=== PATIENT | female | born 1985 | race Caucasian/White ===

== ENCOUNTER 2017-12-12 03:20 | Emergency (ER) | payer BC ==
[2017-12-12] MEDS ORDERED: Ciprofloxacin 500 MG Tab PO ONE (03:21)
[2017-12-12] MEDS ORDERED: Ketorolac 10 MG Tab PO ONE (03:21)
[2017-12-12] MEDS ORDERED: Sodium Chloride 0.9% 1,000 ML IV ONE (03:36)
[2017-12-12] MEDS ORDERED: Ketorolac 30 MG/ML SDV IVPUSH ONE (03:37)
--- NOTE | 2017-12-12 03:47 | EDM.PDOC ---
ED HPI GENERAL MEDICAL PROBLEM - General Chief Complaint: General Stated Complaint: right flank pain Time Seen by Provider: 12/12/17 03:40 Source of Information: Reports: Patient History Limitations: Reports: No Limitations - History of Present Illness INITIAL COMMENTS - FREE TEXT/NARRATIVE: Erin is a 32 year old female who presents to the ED with c/o right flank pain. She reports that earlier this week she had some dysuria and urinary frequency. She reports she pushed fluids and drank cranberry juice and her urinary symptoms seemed to improve. She reports that starting this morning her right flank started hurting. She says that initially it was more of a dull ache and throughout the day she was able to manage it with ibuprofen. She now reports that throughout the night the pain has intensified and is no longer tolerable. She last had ibuprofen at 8 pm. She reports she does not have any urinary symptoms currently. Denies any history of kidney stones. Denies fever, but does have low grade in ER. She has had the chills throughout the evening. She reports she has had some intermittent nausea. Denies vomiting. Onset: Today Onset Date: 12/12/17 Onset Time: 08:00 Duration: Getting Worse Location: Reports: Back (right flank) Quality: Reports: Sharp, Stabbing Severity: Severe Improves with: Reports: Medication Associated Symptoms: Reports: Fever/Chills, Nausea/Vomiting, Weakness. 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 Right Flank Pain Score (Numeric/FACES): 8 - Related Data Allergies Allergy/AdvReac Type Severity Reaction Status Date / Time Penicillins Allergy Hives Verified 12/12/17 03:27 Home Meds: Home Meds Ciprofloxacin [IJD: Ciprofloxacin HCl] 500 mg PO Q12HR #11 tab 12/12/17 [Rx] Ketorolac Tromethamine 10 mg PO Q6H PRN #20 tablet 12/12/17 [Rx] Past Medical History - Past Health History Medical/Surgical History: Denies Medical/Surgical History Social & Family History - Family History Family Medical History: Noncontributory - Tobacco Use Smoking Status *Q: Never Smoker ED ROS GENERAL - Review of Systems Review Of Systems: ROS reveals no pertinent complaints other than HPI. Constitutional: Reports: Fever, Chills, Weakness, Fatigue Respiratory: Reports: No Symptoms. Denies: Shortness of Breath Cardiovascular: Reports: No Symptoms. Denies: Chest Pain Endocrine: Reports: No Symptoms GI/Abdominal: Reports: Decreased Appetite, Nausea. Denies: Abdominal Pain, Anorexia, Constipation, Diarrhea, Vomiting : Reports: Flank Pain (right), Hematuria (has her period). Denies: Dysuria, Frequency, Urgency Neurological: Reports: No Symptoms Psychiatric: Reports: No Symptoms ED EXAM, GENERAL - Physical Exam Exam: See Below Exam Limited By: No Limitations General Appearance: Alert, WD/WN, Moderate Distress Neck: Normal Inspection, Supple, Non-Tender, Full Range of Motion Respiratory/Chest: No Respiratory Distress, Lungs Clear, Normal Breath Sounds, No Accessory Muscle Use, Chest Non-Tender Cardiovascular: Normal Peripheral Pulses, Regular Rate, Rhythm, No Edema, No Gallop, No JVD, No Murmur, No Rub GI/Abdominal: Normal Bowel Sounds, Soft, No Organomegaly, No Distention, No Abnormal Bruit, No Mass, Tender (lower). No: Guarding, Rigid, Rebound Back Exam: CVA Tenderness (R) Neurological: Alert, Oriented, CN II-XII Intact, Normal Cognition, Normal Gait, Normal Reflexes, No Motor/Sensory Deficits Skin Exam: Warm, Dry, Intact, Normal Color, No Rash Course - Vital Signs Last Recorded V/S: Last Vital Signs Temp 99.5 F 12/12/17 03:28 Pulse 100 12/12/17 03:28 Resp 18 12/12/17 03:28 BP 125/70 12/12/17 03:28 Pulse Ox 97 12/12/17 03:28 - Orders/Labs/Meds Orders: Active Orders 24 hr Category Date Time Status Abdomen Pelvis wo Cont [CT] Stat Exams 12/12/17 04:01 Taken CULTURE URINE [RM] Stat Lab 12/12/17 03:30 Received Labs: Laboratory Tests 12/12/17 12/12/17 12/12/17 Range/Units 03:30 03:43 03:43 WBC 9.5 (5.0-10.0) 10^3/uL RBC 4.48 (4.00-5.50) 10^6/uL Hgb 11.8 L (12.0-16.0) g/dL Hct 37.7 (37.0-47.0) % MCV 84.2 (82.0-94.0) fL MCH 26.3 L (27.0-32.0) pg MCHC 31.3 L (33.0-38.0) g/dL RDW Coeff of Katherine 15.8 H (11.0-15.0) % Plt Count 238 (150-400) 10^3/uL Neut % (Auto) 71.0 (35-85) % Lymph % (Auto) 15.5 (10-55) % [place] % (Auto) 12.6 (0-16) % Eos % (Auto) 0.8 (0-5) % Baso % (Auto) 0.1 (0-3) % Neut # (Auto) 6.71 (1.80-7.00) 10^3/uL Lymph # (Auto) 1.47 (1.00-4.80) 10^3/uL [place] # (Auto) 1.19 H (0.00-0.80) 10^3/uL Eos # (Auto) 0.08 (0.00-0.45) 10^3/uL Baso # (Auto) 0.01 10^3/uL Sodium 139 (136-145) mEq/L Potassium 3.5 (3.5-5.0) mEq/L Chloride 102 (98-106) mEq/L Carbon Dioxide 25 (21-32) mmol/L BUN 10 (7-18) mg/dL Creatinine 0.8 (0.6-1.0) mg/dL Est Cr Clr Drug Dosing 88.79 mL/min Estimated GFR (MDRD) > 60 (>=60) mL/min Glucose 94 (75-99) mg/dL Calcium 8.5 (8.4-10.1) mg/dL Total Bilirubin 0.6 (0.0-1.0) mg/dL AST 21 (15-37) U/L ALT 22 (12-78) U/L Alkaline Phosphatase 43 L (46-116) U/L C-Reactive Protein 6.9 H (0.2-0.8) mg/dL Total Protein 6.8 (6.4-8.2) g/dL Albumin 3.4 (3.4-5.0) g/dL Amylase 42 (25-115) U/L Urine Color Yellow (YELLOW) Urine Appearance Slightly cloudy (CLEAR) Urine pH 6.5 (4.5-8.0) Ur Specific [place] 1.020 (1.003-1.020) Urine Protein 30 H (NEGATIVE) mg/dL Urine Glucose (UA) Negative (NEGATIVE) mg/dL Urine Ketones 40 H (NEGATIVE) mg/dL Urine Occult Blood Trace-intact H (NEGATIVE) Urine Nitrite Negative (NEGATIVE) Urine Bilirubin Negative (NEGATIVE) Urine Urobilinogen 0.2 (0.2-1.0) EU/dL Ur Leukocyte Esterase Small H (NEGATIVE) Urine RBC 0-5 (0-5) /HPF Urine WBC 20-30 H (0-5) /HPF Urine WBC Clumps Occasional H (NOT SEEN) /HPF Ur Squamous Epith Cells Occasional H (NOT SEEN) /HPF Urine Bacteria Few H (NOT SEEN) /HPF Meds: Medications Discontinued Medications Generic Name Dose Route Start Last Admin Trade Name Freq PRN Reason Stop Dose Admin Ciprofloxacin 500 mg 12/12/17 04:30 12/12/17 05:23 Ciprofloxacin Hcl PO 500 mg STAT GABRIELA Administration Ciprofloxacin 1 packet 12/12/17 04:30 12/12/17 05:47 Take Home: Ciprofloxacin 500 Mg, 2 Tab Pack PO 12/12/17 04:31 Not Given ONETIME ONE Sodium Chloride 1,000 mls @ 999 mls/hr 12/12/17 03:36 12/12/17 04:05 Normal Saline IV 12/12/17 04:36 999 mls/hr .BOLUS ONE Administration Ketorolac Tromethamine 30 mg 12/12/17 03:37 12/12/17 04:04 Toradol IVPUSH 12/12/17 03:38 30 mg ONETIME ONE Administration Ketorolac Tromethamine 2 packet 12/12/17 04:44 12/12/17 05:47 Take Home: Ketorolac 10 Mg, 4 Tab Pack PO 12/12/17 04:45 Not Given ONETIME ONE - Radiology Interpretation Free Text/Narrative:: 2 SMALL RIGHT KIDNEY STONES. NONOBSTRUCTING. NO HYDRONEPHROSIS. NO OTHER ACUTE FINDINGS. CT Results Date: 12/12/17 CT Results Time: 04:47 - Re-Assessments/Exams Free Text/Narrative Re-Assessment/Exam: 12/12/17 04:06 Discussed labs with patient. Will proceed with renal colic study CT of abdomen/ pelvis. 12/12/17 04:[address] results with patient. Patient reports pain has improved. Departure - Departure Time of Disposition: 04:47 Disposition: Home, Self-Care 01 Condition: Good Clinical Impression: Kidney stone on right side, Complicated UTI (urinary tract infection) - Discharge Information Prescriptions: Ciprofloxacin [IJD: Ciprofloxacin HCl] 500 mg PO Q12HR #11 tab Ketorolac Tromethamine 10 mg PO Q6H PRN #20 tablet PRN Reason: Pain Instructions: Renal Colic, [id number], Kidney Stones, [id number], Urinary Tract Infection, Adult, Flank Pain Referrals: Provider,Unknown [Primary Care Provider] - Forms: ED Department Discharge Additional Instructions: Cipro twice daily x 7 days. Toradol as needed for flank pain Push fluids Follow up in clinic next week for recheck - My Orders Last 24 Hours: My Active Orders 12/12/17 03:30 CULTURE URINE [RM] Stat 12/12/17 04:01 Abdomen Pelvis wo Cont [CT] Stat - Assessment/Plan Last 24 Hours: My Active Orders 12/12/17 03:30 CULTURE URINE [RM] Stat 12/12/17 04:01 Abdomen Pelvis wo Cont [CT] Stat
[2017-12-12 04:01] LABS: CHLORIDE,CL 102 mEq/L (98-106); SODIUM,NA 139 mEq/L (136-145)
[2017-12-12] MEDS ORDERED: Ciprofloxacin 500 MG Tab PO SCH (04:30)
[2017-12-12] MEDS ORDERED: Take Home: Ciprofloxacin 500 MG Tab, 2 Tab Pack PO ONE (04:30)
[2017-12-12] MEDS ORDERED: Take Home: Ketorolac 10 MG Tab, 4 Tab Pack PO ONE (04:44)
== END 2017-12-12 05:25 | disposition home or self-care (01) ==
LOC: MERGE 03:20 → CC.ED 03:20
DX: N20.0 Calculus of kidney (principal); N39.0 Urinary tract infection, site not specified; Z88.0 Allergy status to penicillin
CPT/HCPCS: 36415; 74176; 80053; 81001; 82150; 85025; 86140; 87086; 87088; 87186; 96361; 96374; 99284; A9270; J1885; J7030

== ENCOUNTER 2021-02-25 22:57 | Emergency (ER) | payer BC ==
[2021-02-25] MEDS ORDERED: cefTRIAXone 1 GM Vial IM ONE (23:20)
[2021-02-25] MEDS ORDERED: Take Home: Phenazopyridine 95 MG Tab, 4 Tab Pack ONE (23:20)
--- NOTE | 2021-02-25 23:26 | EDM.PDOC ---
ED HPI GENERAL MEDICAL PROBLEM - General Chief Complaint: General Stated Complaint: UTI Time Seen by Provider: 02/25/21 23:10 Source of Information: Reports: Patient History Limitations: Reports: No Limitations - History of Present Illness INITIAL COMMENTS - FREE TEXT/NARRATIVE: Erin is a 35 year old female who presents to ER with burning with urination. States "hit suddenly this afternoon". Has had to void 2-3 times per hour. This evening has now noted blood in her urine. Has a fever. Bilateral lower quadrant abdominal pain and low back pain. No nausea or vomiting. States in past when gets these infections, always hit fast and hard. She denies constipation or diarrhea. Onset: Today, Sudden Duration: Hour(s):, Getting Worse Location: Reports: Abdomen, Back Quality: Reports: Ache Severity: Moderate Associated Symptoms: Reports: Fever/Chills. Denies: Confusion, Chest Pain, Cough, Loss of Appetite, Nausea/Vomiting, Shortness of Breath, Weakness Lower Abdomen Pain Score (Numeric/FACES): 7 - Related Data Allergies Allergy/AdvReac Type Severity Reaction Status Date / Time Penicillins Allergy Hives Verified 12/12/17 03:27 Home Meds: Home Meds Phenazopyridine HCl [Pyridium] 100 mg PO TID PRN #10 tablet 02/25/21 [Rx] Sulfamethoxazole/Trimethoprim [Bactrim Ds Tablet] 1 each PO BID #20 tablet 02/25/21 [Rx] Past Medical History - Past Health History Medical/Surgical History: Denies Medical/Surgical History Social & Family History - Family History Family Medical History: No Pertinent Family History - Tobacco Use Tobacco Use Status *Q: Never Tobacco User Second Hand Smoke Exposure: No - Caffeine Use Caffeine Use: Reports: Coffee - Recreational Drug Use Recreational Drug Use: No ED ROS GENERAL - Review of Systems Review Of Systems: See Below Constitutional: Reports: Fever, Chills, Malaise. Denies: Fatigue, Decreased Appetite HEENT: Reports: No Symptoms Respiratory: Denies: Shortness of Breath Cardiovascular: Denies: Chest Pain, Edema, Lightheadedness Endocrine: Denies: Fatigue GI/Abdominal: Denies: Abdominal Pain, Nausea, Vomiting : Reports: Dysuria, Flank Pain, Frequency, Hematuria, Urgency Musculoskeletal: Reports: Back Pain Skin: Reports: No Symptoms Neurological: Reports: No Symptoms ED EXAM, GENERAL - Physical Exam Exam: See Below Exam Limited By: No Limitations General Appearance: Alert, WD/WN, No Apparent Distress Ears: Normal External Exam, Normal TMs Nose: Normal Inspection, Normal Mucosa, No Blood Throat/Mouth: Normal Inspection, Normal Oropharynx Head: Normocephalic Neck: Normal Inspection, Supple, Non-Tender Respiratory/Chest: No Respiratory Distress, Lungs Clear, Normal Breath Sounds Cardiovascular: Regular Rate, Rhythm GI/Abdominal: Normal Bowel Sounds, Soft, Tender (lower quadrants) Back Exam: CVA Tenderness (L), CVA Tenderness (R) Extremities: Normal Inspection, No Pedal Edema Neurological: Alert, Oriented Skin Exam: Warm, Dry Course - Vital Signs Last Recorded V/S: Last Vital Signs Temp 100.2 F 02/25/21 22:59 Pulse 79 02/25/21 22:59 Resp 20 02/25/21 22:59 BP 146/94 H 02/25/21 22:59 Pulse Ox 98 02/25/21 22:59 - Orders/Labs/Meds Orders: Active Orders 24 hr Category Date Time Status CULTURE URINE [RM] Stat Lab 02/25/21 23:02 Received Labs: Laboratory Tests 02/25/21 Range/Units 23:02 Urine Color [place] (YELLOW) Urine Appearance Cloudy (CLEAR) Urine pH 7.0 (4.5-8.0) Ur Specific [place] 1.015 (1.003-1.020) Urine Protein 100 H (NEGATIVE) mg/dL Urine Glucose (UA) Negative (NEGATIVE) mg/dL Urine Ketones Negative (NEGATIVE) mg/dL Urine Occult Blood Large H (NEGATIVE) Urine Nitrite Negative (NEGATIVE) Urine Bilirubin Negative (NEGATIVE) Urine Urobilinogen 0.2 (0.2-1.0) EU/dL Ur Leukocyte Esterase Large H (NEGATIVE) Urine RBC 75-100 H (0-5) /HPF Urine WBC Packed H (0-5) /HPF Ur Epithelial Cells Few H (NOT SEEN) /HPF Meds: Medications Discontinued Medications Generic Name Dose Route Start Last Admin Trade Name Freq PRN Reason Stop Dose Admin Ceftriaxone Sodium 1 gm 02/25/21 23:20 02/25/21 23:29 Ceftriaxone 1 Gm Vial IM 02/25/21 23:21 1 gm ONETIME ONE Administration Lidocaine HCl 5 ml 02/25/21 23:20 02/25/21 23:41 Lidocaine 1% 5 Ml Sdv INJECT 02/25/21 23:21 2.1 ml ONETIME ONE Administration Phenazopyridine HCl 1 packet 02/25/21 23:20 02/25/21 23:29 Take Home: Phenazopyridine 95 Mg Tab, 4 Tab Pack .XX 02/25/21 23:21 1 packet ONETIME ONE Administration - Re-Assessments/Exams Free Text/Narrative Re-Assessment/Exam: 02/25 UA positive Departure - Departure Time of Disposition: 23:27 Disposition: Home, Self-Care 01 Condition: Good Clinical Impression: Complicated UTI (urinary tract infection) - Discharge Information *PRESCRIPTION DRUG MONITORING PROGRAM REVIEWED*: No *COPY OF PRESCRIPTION DRUG MONITORING REPORT IN PATIENT KATIUSKA: No Prescriptions: Sulfamethoxazole/Trimethoprim [Bactrim Ds Tablet] 1 each PO BID #20 tablet Phenazopyridine HCl [Pyridium] 100 mg PO TID PRN #10 tablet PRN Reason: Other Instructions: Urinary Tract Infection, Adult Referrals: Dara Combs DELIVERY ASSISTANT [Primary Care Provider] - Forms: ED Department Discharge Additional Instructions: 1. Push fluids 2. Pyridium (phenazopyridine) 100 mg up to three times per day as needed for burning with urination 3. Bactrim DS one twice a day for 10 days, start in am 4. Follow up if any persisting concerns. Sepsis Event Note (ED) - Evaluation Sepsis Screening Result: No Definite Risk - My Orders Last 24 Hours: My Active Orders 02/25/21 23:02 CULTURE URINE [RM] Stat - Assessment/Plan Last 24 Hours: My Active Orders 02/25/21 23:02 CULTURE URINE [RM] Stat
== END 2021-02-25 23:43 | disposition home or self-care (01) ==
LOC: CC.ED 22:57
DX: N39.0 Urinary tract infection, site not specified (principal); Z88.0 Allergy status to penicillin
CPT/HCPCS: 81001; 87086; 96372; 99283; A9270-GY; J0696

== ENCOUNTER 2022-05-25 12:48 | Emergency (ER) | payer BC, OTHER | END 2022-05-25 13:34 | disposition home or self-care (01) | LOC: CC.ED 12:48 | DX: O20.9 Hemorrhage in early pregnancy, unspecified (principal); Z88.0 Allergy status to penicillin; Z3A.10 10 weeks gestation of pregnancy | CPT/HCPCS: 36415; 84702; 99284 ==

== ENCOUNTER 2023-10-25 22:38 | Emergency (ER) | payer BC ==
[2023-10-25 22:55] LABS: APPEARANCE,URINE CLEAR (CLEAR); BILIRUBIN,URINE NEGATIVE (NEGATIVE); COLOR,URINE YELLOW (YELLOW); GLUCOSE,URINE NEGATIVE (NEGATIVE); KETONES,URINE NEGATIVE (NEGATIVE); LEUKOCYTE ESTERASE,URINE MODERATE (NEGATIVE); NITRITE,URINE NEGATIVE (NEGATIVE); OCCULT BLOOD,URINE LARGE (NEGATIVE); PH,URINE 6.5 (4.5-8.0); PROTEIN,URINE NEGATIVE (NEGATIVE); UROBILINOGEN,URINE 0.2 EU/dL (0.2-1.0)
[2023-10-25 23:06] LABS: BACTERIA,URINE FEW /HPF (NOT SEEN); EPITHELIAL CELLS,URINE RARE /HPF (NOT SEEN); RBC,URINE 0-5 /HPF (0-5); WBC CLUMPS,URINE FEW /HPF (NOT SEEN); WBC,URINE 20-30 /HPF (0-5)
[2023-10-25] MEDS ORDERED: Take Home: Sulfamethoxazole/Trimethoprim 800-160 MG Tab, 6 Tab Pack PO ONE (23:11)
== END 2023-10-25 23:33 | disposition home or self-care (01) ==
LOC: CC.ED 22:38
DX: N39.0 Urinary tract infection, site not specified (principal); Z88.0 Allergy status to penicillin
CPT/HCPCS: 81001; 87086; 99283; A9270-GY